=== PATIENT | female | born 1970 | race Caucasian/White ===

== ENCOUNTER 2017-08-04 11:31 | Emergency (ER) | payer OTHER ==
[~2017-08-04] VITALS: Ht 162.6 cm; Wt 79.8 kg
[~2017-08-04 11:31] MED LIST: ASPI-482 PO; IBUP-1007 PO; LORA-627 PO; MULT1CAP15 PO; NAPR500T8 PO; PROAIR HFA8.5 GM IH; SERT100T8 PO
[2017-08-04] MEDS ORDERED: LIDOCAINE/EPI/TETRACAINE TOPICAL GEL 3 ML. TP ONE (11:45)
--- NOTE | 2017-08-04 11:58 | PHYS DOC ---
Past Medical History Past Medical History: Depression, Other Additional Past Medical Histor: Cerebral palsy Alcohol Use: None Drug Use: None Adult General Chief Complaint Chief Complaint: LACERATION/AVULSION HPI HPI Patient is a 47 year old female presents to the emergency Department with her mother who states that she went walk up the back door and tripped. She fell hitting her head she has a laceration noted to her forehead is approximately 3- 4 cm in length. Patient denies any loss of consciousness. She is unsure when her last tetanus immunization occurred. She denies any neck or back pain and discomfort. Review of Systems Review of Systems Constitutional: Denies fever or chills [] Eyes: Denies change in visual acuity, redness, or eye pain [] HENT: Denies nasal congestion or sore throat [] Respiratory: Denies cough or shortness of breath [] Cardiovascular: No additional information not addressed in HPI [] GI: Denies abdominal pain, nausea, vomiting, bloody stools or diarrhea [] : Denies dysuria or hematuria [] Musculoskeletal: Denies back pain or joint pain [] Integument: Denies rash or skin lesions presents to the emergency department for lacerations to right forehead. Neurologic: Denies headache, focal weakness or sensory changes [] Endocrine: Denies polyuria or polydipsia [] Current Medications Current Medications Current Medications Medications (Trade) Dose Ordered Sig/Mica Start Time Stop Time Status Last Admin Dose Admin Diphtheria/ Tetanus/Acell Pertussis (Boostrix) 0.5 ml ONCE ONCE 08/04/17 12:00 08/04/17 12:01 DC 08/04/17 13:19 0.5 ML Lidocaine/ Epinephrine (Let Topical) 3 ml 1X ONCE 08/04/17 11:45 08/04/17 11:46 DC 08/04/17 11:59 3 ML Allergies Allergies Allergies Coded Allergies Type Severity Reaction Last Updated Verified No Known Drug Allergies 10/08/14 No Physical Exam Physical Exam Constitutional: Well developed, well nourished, no acute distress, non-toxic appearance. [] HENT: Normocephalic, atraumatic, bilateral external ears normal, oropharynx moist, no oral exudates, nose normal. [] Eyes: PERRLA, EOMI, conjunctiva normal, no discharge. [] Neck: Normal range of motion, no tenderness, supple, no stridor. [] Cardiovascular:Heart rate regular rhythm, no murmur [] Lungs & Thorax: Bilateral breath sounds clear to auscultation [] Skin: Warm, dry, no erythema, no rash. Patient with a 3 cm laceration noted to the right forehead. Back: No tenderness Extremities: No tenderness, no cyanosis, no clubbing, ROM intact, no edema. [] Neurologic: Alert and oriented X 3, normal motor function, normal sensory function, no focal deficits noted. [] Psychologic: Affect normal, judgement normal, mood normal. [] Current Patient Data Vital Signs Vital Signs Date Time Temp Pulse Resp B/P (MAP) Pulse Ox O2 Delivery O2 Flow Rate FiO2 08/04/17 12:01 98.9 101 18 96 Room Air 98.9 EKG EKG [] Radiology/Procedures Radiology/Procedures [][facility] [address] [place] [address] IMAGING REPORT Signed PATIENT: BEAN HA ACCOUNT: [id number] : 1970 LOCATION: ER AGE: 47 SEX: F EXAM STATUS: PRE ER ORD. PHYSICIAN: TOMMY ABARCA APRN REASON: fell face first onto the ground PROCEDURE: CT HEAD AND CERVICAL SPINE WO Indication fall. Injury to the head and cervical spine. Pain. The head and cervical spine were evaluated. Images of the cervical spine were reformatted in the coronal and sagittal planes. No prior imaging of the head is available. The history of prior stroke has been provided. CT head: Findings. Some soft tissue swelling over the forehead is noted. No acute calvarial finding is seen. There is partial opacification of the maxillary sinuses. Clinical correlation as to the possibility of sinusitis advised. There are some atrophic changes seen associated with the left cerebral hemisphere relative to the right. These findings would be compatible with the history provided, previous stroke. There is no subdural or epidural hematoma. No mass or midline shift is seen. There is no evidence of hemorrhage. No acute intracranial finding is not apparent. CT cervical spine: Findings The lung apices are clear. No significant soft tissue finding is seen in the neck. There are degenerative changes in the cervical spine. This is most pronounced at C4-5 and C5-6. There is disc space narrowing and osteophyte formation at both of these levels. No acute bony finding is seen in the cervical spine. IMPRESSION: Chronic changes in the head. No acute finding seen. Spondylitic changes in the cervical spine. No acute finding seen PQRS Compliance Statement: One or more of the following individualized dose reduction techniques were utilized for this examination: 1. Automated exposure control 2. Adjustment of the mA and/or kV according to patient size 3. Use of iterative reconstruction technique DICTATED and SIGNED BY: JESSY MACHADO MD DATE: 08/04/17 1221 CC: TOMMY ABARCA APRN; GILBERT WILKES MD ~ Course & Med Decision Making Course & Med Decision Making Pertinent Labs and Imaging studies reviewed. (See chart for details) LET was applied to the laceration. Site was cleaned with Betadine. 6-0 nylon was used to suture the area with a sterile technique. Sutures, interrupted were placed. Steri-Strips was placed over the other superficial laceration. Patient was provided with discharge instructions to have the sutures out in 7-10 days. Recommended cleaning the site twice day with soap and water and applying antibiotic ointment. Signs symptoms of infection redness, warmth, tenderness or any yellow/greenish transient become from the site physician occur follow-up to primary care physician immediately. Patient and parent agrees with discharge instructions, treatment regimens and follow-up recommendations. Signs symptoms to return back to emergency department provided. All questions and concerns been answered at bedside. Dragon Disclaimer Dragon Disclaimer This electronic medical record was generated, in whole or in part, using a voice recognition dictation system. Departure Departure Impression: Primary Impression: Laceration Additional Impression: Head injury Disposition: 01 HOME, SELF-CARE Condition: STABLE Referrals: GILBERT WILKES MD (PCP) Patient Instructions: Facial Laceration, [id number], Head Injury, Adult, Easy -to-Read Additional Instructions: Your CT scan was negative for head injury or neck. You have sutures placed in your forehead. Keep the sutures clean and dry. Clean the site twice daily with soap and water and apply antibiotic ointment to the area. Watch for signs and symptoms of infection: Redness, warmth, tenderness or any yellow/greenish drainage of a come from the site. Physician occur follow-up to primary care physician immediately. Ice packs on 20 minutes off 20 minutes several times a day. You may wash her hair today that in the next 7 day to 10 days keep the areas clean and dry as possible. Follow-up with her primary care physician in 7-10 days for suture removal. Return back to emergency prior signs symptoms of become worse. Problem Qualifiers Additional Impression: Head injury Encounter type: initial encounter Qualified Codes: S09.90XA - Unspecified injury of head, initial encounter TOMMY ABARCA TMD TEACHER Aug 04, 2017 11:58
[2017-08-04] MEDS ORDERED: DIPHTH,PERTUSS(ACELL),TET TOX 0.5 ML DISP.SYRIN. VAX IM ONE (12:00)
[2017-08-04 12:01] VITALS: BP 166/91
--- NOTE | 2017-08-04 12:33 | RAD ---
Indication fall. Injury to the head and cervical spine. Pain. The head and cervical spine were evaluated. Images of the cervical spine were reformatted in the coronal and sagittal planes. No prior imaging of the head is available. The history of prior stroke has been provided. CT head: Findings. Some soft tissue swelling over the forehead is noted. No acute calvarial finding is seen. There is partial opacification of the maxillary sinuses. Clinical correlation as to the possibility of sinusitis advised. There are some atrophic changes seen associated with the left cerebral hemisphere relative to the right. These findings would be compatible with the history provided, previous stroke. There is no subdural or epidural hematoma. No mass or midline shift is seen. There is no evidence of hemorrhage. No acute intracranial finding is not apparent. CT cervical spine: Findings The lung apices are clear. No significant soft tissue finding is seen in the neck. There are degenerative changes in the cervical spine. This is most pronounced at C4-5 and C5-6. There is disc space narrowing and osteophyte formation at both of these levels. No acute bony finding is seen in the cervical spine. IMPRESSION: Chronic changes in the head. No acute finding seen. Spondylitic changes in the cervical spine. No acute finding seen PQRS Compliance Statement: One or more of the following individualized dose reduction techniques were utilized for this examination: 1. Automated exposure control 2. Adjustment of the mA and/or kV according to patient size 3. Use of iterative reconstruction technique
== END 2017-08-04 13:21 | disposition home or self-care (01) ==
LOC: ER 11:31
DX: S01.81XA Laceration without foreign body of other part of head, initial encounter (principal); W01.0XXA Fall on same level from slipping, tripping and stumbling without subsequent striking against object, initial encounter; Y93.89 Activity, other specified; Y99.8 Other external cause status; Y92.89 Other specified places as the place of occurrence of the external cause
CPT/HCPCS: 12013; 70450; 72125; 90471; 90715; 99284-25

== ENCOUNTER → 2017-09-15 | Outpatient (CLI) | payer MEDICARE, OTHER ==
--- NOTE | 2017-09-15 11:59 | RAD ---
DATE: 09/15/2017 EXAM: DIGITAL SCREEN BILAT W/CAD HISTORY: Routine screening COMPARISON: 09/14/2016 This study was interpreted with the benefit of Computerized Aided Detection (CAD). The breast parenchyma shows scattered fibroglandular densities. Breast parenchyma level B. FINDINGS: No new or enlarging breast densities are seen. A marker from a previous breast biopsy is evident medially in the left breast. Benign type calcifications are present. No suspicious microcalcifications have developed. IMPRESSION: Stable mammograms without evidence of malignancy. BI-RADS CATEGORY: 2 BENIGN FINDING(S) RECOMMENDED FOLLOW-UP: 12M 12 MONTH FOLLOW-UP PQRS compliance statement: Patient information was entered into a reminder system with a target due date for the next mammogram. Mammography is a sensitive method for finding small breast cancers, but it does not detect them all and is not a substitute for careful clinical examination. A negative mammogram does not negate a clinically suspicious finding and should not result in delay in biopsying a clinically suspicious abnormality. "Our facility is accredited by the [employer] Mammography Program."
== END | disposition home or self-care (01) ==
LOC: MAMMO 10:02
PROVIDERS: ATTEND Family Medicine
DX: Z12.31 Encounter for screening mammogram for malignant neoplasm of breast (principal)
CPT/HCPCS: G0202; 77067

== ENCOUNTER → 2017-11-07 | Outpatient (CLI) | payer OTHER ==
--- NOTE | 2017-11-07 12:11 | KCIC ---
Examination: MRI of the right knee without contrast HISTORY: History of lateral right knee pain COMPARISON: None available Technique: Multiplanar, multisequence MR imaging of the right knee was performed without contrast. FINDINGS: There is mild increased density T2 signal identified in the anterior cruciate ligament probably mild degeneration. The visualized posterior cruciate appears intact. The medial meniscus appears intact. There is mild attenuation of the body of the lateral meniscus. There is subtle blunting of the junction of the body and posterior horn of the lateral meniscus likely a small radial tear or free edge tearing. The extensor mechanism is intact. The medial collateral ligament is intact. Lateral collateral ligamentous complex including the fibular collateral ligament, biceps femoris tendon, popliteus tendon appear intact. There is mild superficial fraying of cartilage identified in the medial, lateral compartment. There is deep fissuring of cartilage identified in the patellofemoral compartments. The medial retinaculum, lateral retinaculum appears intact. Small knee joint effusion. IMPRESSION: 1. Subtle blunting of the junction of the body and posterior horn of the lateral meniscus could be a subtle free edge tear or radial tear. 2. Grade 2 chondromalacia patella. 3. Mild increased signal identified in the anterior cruciate ligament probably due to mild degeneration. Electronically signed by: Florentin Farrell MD (11/07/2017 12:07 PM) [id number]
== END | disposition home or self-care (01) ==
LOC: KCIC MRI 09:18
PROVIDERS: ATTEND Physician Assistant Surgical
DX: M94.261 Chondromalacia, right knee (principal); M25.461 Effusion, right knee
CPT/HCPCS: 73721

== ENCOUNTER → 2018-09-25 | Outpatient (CLI) | payer OTHER ==
--- NOTE | 2018-09-25 11:38 | RAD ---
DATE: 09/25/2018 EXAM: MAMMO CARO SCREENING BILATERAL HISTORY: Routine screening COMPARISON: 09/15/2017 This study was interpreted with the benefit of Computerized Aided Detection (CAD). Breast Density: HETERO The breast parenchyma is heterogenously dense, which could reduce sensitivity of mammography. Breast parenchyma level C. FINDINGS: 2-D and 3-D tomosynthesis imaging was performed in CC and MLO projections. An old breast biopsy marker is again noted medially in the left breast. No new or enlarging breast densities are seen. Scattered benign type calcifications are again noted. A cluster of microcalcifications is now visualized for posteriorly in the right breast just lateral to the midline on the cc view. It was not visible on previous mammograms. These calcifications are not clearly visualized on the current right oblique view, however, there is patient motion artifact on today's oblique view. IMPRESSION: Clustered right breast microcalcifications. Magnification and straight medial lateral views are suggested for further evaluation. BI-RADS CATEGORY: 0 INCOMPLETE: NEEDS ADDITIONAL IMAGING EVALUATION AND/OR PRIOR MAMMOGRAMS FOR COMPARISON. RECOMMENDED FOLLOW-UP: ADD ADDITIONAL IMAGING PQRS compliance statement: Patient information was entered into a reminder system with a target due date for the next mammogram. Mammography is a sensitive method for finding small breast cancers, but it does not detect them all and is not a substitute for careful clinical examination. A negative mammogram does not negate a clinically suspicious finding and should not result in delay in biopsying a clinically suspicious abnormality. "Our facility is accredited by the [employer] Mammography Program."
== END | disposition home or self-care (01) ==
LOC: MAMMO 08:53
PROVIDERS: ATTEND Family Medicine
DX: Z12.31 Encounter for screening mammogram for malignant neoplasm of breast (principal); R92.0 Mammographic microcalcification found on diagnostic imaging of breast
CPT/HCPCS: 77063; 77067

== ENCOUNTER → 2018-10-03 | Outpatient (CLI) | payer OTHER ==
--- NOTE | 2018-10-03 10:11 | RAD ---
DATE: 10/03/2018 EXAM: DIGITAL DIAGNOSTIC RT HISTORY: Abnormal screening mammogram COMPARISON: 09/14/2016, 09/15/2017, and 09/25/2018 screening mammographic exams This study was interpreted with the benefit of Computerized Aided Detection (CAD). Breast Density: SCATTERED The breast parenchyma shows scattered fibroglandular densities. Breast parenchyma level B. FINDINGS: Mediolateral view of the right breast was performed. Spot magnification view of the right outer breast in the CC projection and spot medication imaging of the upper right breast in the mediolateral view was There are scattered calcifications which are smoothly marginated. No conclusive suspicious cluster. Calcifications are less evident in the CC projection. There may be overlapping of these calcifications on the mediolateral projection at the upper breast. IMPRESSION: Probably benign right upper calcifications. No associated distortion or definite mass. Diagnostic mammographic follow-up in 6 months is recommended to assess stability. Ultrasound may be needed at that time. BI-RADS CATEGORY: 3 PROBABLY BENIGN FINDING(S)-SHORT INTERVAL FOLLOW-UP SUGGESTED RECOMMENDED FOLLOW-UP: 6M 6 MONTH FOLLOW-UP PQRS compliance statement: Patient information was entered into a reminder system with a target due date in 6 months for the next mammogram. Mammography is a sensitive method for finding small breast cancers, but it does not detect them all and is not a substitute for careful clinical examination. A negative mammogram does not negate a clinically suspicious finding and should not result in delay in biopsying a clinically suspicious abnormality. "Our facility is accredited by the [employer] Mammography Program."
== END | disposition home or self-care (01) ==
LOC: MAMMO 09:13
PROVIDERS: ATTEND Family Medicine
DX: R92.8 Other abnormal and inconclusive findings on diagnostic imaging of breast (principal)
CPT/HCPCS: 77065

== ENCOUNTER 2019-02-03 13:57 | Emergency (ER) | payer OTHER ==
[~2019-02-03] VITALS: Ht 165.1 cm; Wt 69.4 kg
[~2019-02-03 13:57] MED LIST changes: +ALBU2.5V8 IH; -PROAIR HFA8.5 GM IH
[2019-02-03] MEDS ORDERED: IV NORMAL SALINE 1000ML BAG 1,000 ML IV ONE ×2 (14:45)
--- NOTE | 2019-02-03 14:51 | PHYS DOC ---
Past Medical History Past Medical History: Depression, Other Additional Past Medical Histor: Cerebral palsy Past Surgical History: No Surgical History Alcohol Use: None Drug Use: None Adult General Chief Complaint Chief Complaint: DIARRHEA HPI HPI Patient is a 48-year-old female, who has a history of cerebral palsy, who presents to the emergency department along with her mother. The patient states that for the past 4 days she has had multiple episodes of diarrhea, seemingly precipitated by eating anything at all. She has not had any vomiting or fevers per se, but feels generally weak. She has not had any bloody stools. She is noted to be tachycardic upon arrival. She denies any chest pain or shortness of breath. She does admit to some generalized abdominal pain. There are no alleviating or exacerbating factors to her symptoms. Patient denies any recent travel or antibiotic use. Review of Systems Review of Systems Constitutional: Denies fever or chills [] Eyes: Denies change in visual acuity, redness, or eye pain [] HENT: Denies nasal congestion or sore throat [] Respiratory: Denies cough or shortness of breath [] Cardiovascular:The patient denies any shortness of breath, chest pain, palpitations, or orthopnea [] GI: No additional information not addressed in HPI [] : Denies dysuria or hematuria [] Musculoskeletal: Denies back pain or joint pain [] Integument: Denies rash or skin lesions [] Neurologic: Denies headache, focal weakness or sensory changes [] Endocrine: Denies polyuria or polydipsia [] All other systems were reviewed and found to be within normal limits, except as documented in this note. Current Medications Current Medications Current Medications Medications (Trade) Dose Ordered Sig/Mica Start Time Stop Time Status Last Admin Dose Admin Info (CONTRAST GIVEN -- Rx MONITORING) 1 each PRN DAILY PRN 02/03/19 15:45 02/05/19 15:44 Iohexol (Omnipaque 300 Mg/ml) 75 ml 1X ONCE 02/03/19 15:45 02/03/19 15:46 DC 02/03/19 15:59 75 ML Sodium Chloride 1,000 ml @ 1,000 mls/hr 1X ONCE 02/03/19 14:45 02/03/19 15:44 DC 02/03/19 15:26 1,000 MLS/HR Allergies Allergies Allergies Coded Allergies Type Severity Reaction Last Updated Verified No Known Drug Allergies 10/08/14 No Physical Exam Physical Exam PHYSICAL EXAM: CONSTITUTIONAL: Well developed, well nourished HEAD: normocephalic, atraumatic EENT: PERRL, EOMI. Conjunctivae normal color, sclerae non-icteric; moist mucous membranes. NECK: Supple, non-tender; no meningismus. LUNGS: Lungs CTA, breathing even and unlabored. Normal air movement. HEART: Regular rate and rhythm, no murmur CHEST: No deformity; non-tender ABDOMEN: The abdomen is soft, mild diffuse tenderness to palpation to the entire abdomen, without focal tenderness, rebound, or guarding, bowel sounds are present, no masses or bruits. EXTREM: Normal ROM; no deformity, no calf tenderness. Normal pulses palpable in all extremities. There are contractures of the upper extremities bilaterally, there is swelling to the left leg relative to the right which the patient states is chronic for her. SKIN: No rash; no diaphoresis NEURO: Alert; normal speech and cognition; CN's grossly intact; strength grossly intact without focal deficit. BACK: No CVA TTP. Current Patient Data Vital Signs Vital Signs Date Time Temp Pulse Resp B/P (MAP) Pulse Ox O2 Delivery O2 Flow Rate FiO2 02/03/19 14:33 98.4 153 20 141/81 (101) 96 Room Air 98.4 Lab Values Laboratory Tests Test 02/03/19 15:02 White Blood Count 6.9 x10^3/uL (4.0-11.0) Red Blood Count 5.18 x10^6/uL (3.50-5.40) Hemoglobin 15.6 g/dL (12.0-15.5) H Hematocrit 47.1 % (36.0-47.0) H Mean Corpuscular Volume 91 fL (79-100) Mean Corpuscular Hemoglobin 30 pg (25-35) Mean Corpuscular Hemoglobin Concent 33 g/dL (31-37) Red Cell Distribution Width 14.0 % (11.5-14.5) Platelet Count 424 x10^3/uL (140-400) H Neutrophils (%) (Auto) 68 % (31-73) Lymphocytes (%) (Auto) 25 % (24-48) Monocytes (%) (Auto) 7 % (0-9) Eosinophils (%) (Auto) 1 % (0-3) Basophils (%) (Auto) 0 % (0-3) Neutrophils # (Auto) 4.7 x10^3uL (1.8-7.7) Lymphocytes # (Auto) 1.7 x10^3/uL (1.0-4.8) Monocytes # (Auto) 0.5 x10^3/uL (0.0-1.1) Eosinophils # (Auto) 0.0 x10^3/uL (0.0-0.7) Basophils # (Auto) 0.0 x10^3/uL (0.0-0.2) Sodium Level 140 mmol/L (136-145) Potassium Level 3.5 mmol/L (3.5-5.1) Chloride Level 103 mmol/L (98-107) Carbon Dioxide Level 27 mmol/L (21-32) Anion Gap 10 (6-14) Blood Urea Nitrogen 12 mg/dL (7-20) Creatinine 0.8 mg/dL (0.6-1.0) Estimated GFR (Cockcroft-Gault) 76.2 BUN/Creatinine Ratio 15 (6-20) Glucose Level 110 mg/dL (70-99) H Lactic Acid Level 1.0 mmol/L (0.4-2.0) Calcium Level 9.8 mg/dL (8.5-10.1) Total Bilirubin 0.5 mg/dL (0.2-1.0) Aspartate Amino Transferase (AST) 16 U/L (15-37) Alanine Aminotransferase (ALT) 35 U/L (14-59) Alkaline Phosphatase 101 U/L (46-116) Total Protein 8.1 g/dL (6.4-8.2) Albumin 4.2 g/dL (3.4-5.0) Albumin/Globulin Ratio 1.1 (1.0-1.7) Lipase 99 U/L (73-393) Thyroid Stimulating Hormone (TSH) 2.410 uIU/mL (0.358-3.74) Free Thyroxine 0.97 ng/dL (0.76-1.46) Laboratory Tests 02/03/19 15:02 Laboratory Tests 02/03/19 15:02 EKG EKG [Sinus tachycardia at a rate of 143 beats for minute, right axis deviation, normal intervals. There are no acute ischemic ST/T changes.] Radiology/Procedures Radiology/Procedures [PROCEDURE: CT ABD PELV W/ IV CONTRST ONLY Examination: CT of the abdomen pelvis with IV contrast HISTORY: History of abdominal pain, diarrhea COMPARISON: None available TECHNIQUE: Axial CT images of the abdomen pelvis were performed with IV contrast. Coronal and sagittal reformats are performed Exposure: One or more of the following individualized dose reduction techniques were utilized for this examination: 1. Automated exposure control 2. Adjustment of the mA and/or kV according to patient size 3. Use of iterative reconstruction technique FINDINGS: Mild bibasilar lung airspace opacities likely atelectasis or infiltrates. No evidence of free air identified in the abdomen. The visualized liver, spleen, adrenals grossly appears unremarkable. The caliber is mildly distended. The stomach is mildly distended. The visualized pancreas grossly appears unremarkable. The small bowel is nondilated. Feces and gas noted in the colon. Intrauterine contraceptive device is identified. The bilateral kidneys enhance symmetrically. There is a cystic structure identified in the left kidney measuring 1 cm probably a cyst. No evidence of lytic bony destructive lesion. IMPRESSION: 1. No acute intra-abdominal findings ] Course & Med Decision Making Course & Med Decision Making Pertinent Labs and Imaging studies reviewed. (See chart for details) [5:10 PM: The patient's condition remained stable, her heart rate is about 1:30 , but she is feeling much better. She states she is a was tachycardic and does not want stay in the hospital. I'm concerned about the degree of her tachycardia and recommended she stay in the hospital for further observation of the whole workup to this point is benign. The patient expressed understanding of the concerns, as well as the possibility that there is a serious etiology or cause of her ] tachycardia and she would still like to go home. I will page the patient's PCP to ensure that she can be closely followed, and we discussed return precautions in detail. The patient is coherent and both herself and her mother would like to go home. Dragon Disclaimer Dragon Disclaimer This electronic medical record was generated, in whole or in part, using a voice recognition dictation system. Departure Departure Impression: Primary Impression: Diarrhea Additional Impression: Tachycardia Disposition: 07 AGAINST MEDICAL ADVICE Condition: STABLE Referrals: GILBERT WILKES MD (PCP) Patient Instructions: Diarrhea, Nonspecific Tachycardia Problem Qualifiers JORGE LUIS MARROQUIN MD Feb 03, 2019 14:51
[2019-02-03 15:23] LABS: BASO % 0 % (0-3); EOS % 1 % (0-3); HEMATOCRIT 47.1 % (36.0-47.0); HEMOGLOBIN 15.6 g/dL (12.0-15.5); LYMPH # 1.7 x10^3/uL (1.0-4.8); LYMPH % 25 % (24-48); MEAN CORPUSCULAR HEMOGLOBIN 30 pg (25-35); MEAN CORPUSCULAR HGB CONC 33 g/dL (31-37); MEAN CORPUSCULAR VOLUME 91 fL (79-100); MONO # 0.5 x10^3/uL (0.0-1.1); MONO % 7 % (0-9); NEUT # 4.7 x10^3uL (1.8-7.7); NEUT % 68 % (31-73); PLATELET COUNT 424 x10^3/uL (140-400); RED BLOOD COUNT 5.18 x10^6/uL (3.50-5.40); WHITE BLOOD COUNT 6.9 x10^3/uL (4.0-11.0)
[2019-02-03 15:38] LABS: CALCIUM 9.8 mg/dL (8.5-10.1); CREATININE 0.8 mg/dL (0.6-1.0); GFR 76.2; POTASSIUM 3.5 mmol/L (3.5-5.1)
[2019-02-03] MEDS ORDERED: CONTRAST GIVEN. MC PRN (15:45)
[2019-02-03] MEDS ORDERED: IOHEXOL 300 MG/ML 100ML VIAL. IV ONE (15:45)
[2019-02-03 15:55] LABS: ALBUMIN 4.2 g/dL (3.4-5.0); ALBUMIN/GLOBULIN RATIO 1.1 (1.0-1.7); TOTAL BILIRUBIN 0.5 mg/dL (0.2-1.0); TOTAL PROTEIN 8.1 g/dL (6.4-8.2)
[2019-02-03 15:58] LABS: FREE T4 0.97 ng/dL (0.76-1.46); THYROID STIM HORMONE (TSH) 2.41 uIU/mL (0.358-3.74)
--- NOTE | 2019-02-03 16:17 | RAD ---
Examination: CT of the abdomen pelvis with IV contrast HISTORY: History of abdominal pain, diarrhea COMPARISON: None available TECHNIQUE: Axial CT images of the abdomen pelvis were performed with IV contrast. Coronal and sagittal reformats are performed Exposure: One or more of the following individualized dose reduction techniques were utilized for this examination: 1. Automated exposure control 2. Adjustment of the mA and/or kV according to patient size 3. Use of iterative reconstruction technique FINDINGS: Mild bibasilar lung airspace opacities likely atelectasis or infiltrates. No evidence of free air identified in the abdomen. The visualized liver, spleen, adrenals grossly appears unremarkable. The caliber is mildly distended. The stomach is mildly distended. The visualized pancreas grossly appears unremarkable. The small bowel is nondilated. Feces and gas noted in the colon. Intrauterine contraceptive device is identified. The bilateral kidneys enhance symmetrically. There is a cystic structure identified in the left kidney measuring 1 cm probably a cyst. No evidence of lytic bony destructive lesion. IMPRESSION: 1. No acute intra-abdominal findings Electronically signed by: Florentin Farrell MD (02/03/2019 4:14 PM) [facility]
[2019-02-03 17:27] VITALS: BP 125/69
--- NOTE | 2019-02-04 07:04 | EKG ---
[facility] [address] [place] [address] Test Date: 2019-02-03 Test Time: 14:44:09 Pat Name: BEAN HA Department: Room: Gender: F Labor Relations Representative: : 1970 Requested By: JORGEL UIS MARROQUIN Order Number: [id number] Reading MD: Geoffrey Novoa MD Measurements Intervals [place] Rate: 143 P: 156 OR: 124 QRS: 152 QRSD: 78 T: 148 QT: 274 QTc: 428 Interpretive Statements SINUS TACHYCARDIA LIMB LEAD MISPLACEMENT Electronically Signed On 02-07-2019 15:51:47 CDT by Geoffrey Novoa MD
== END 2019-02-03 17:49 | disposition left against medical advice (07) ==
LOC: EDBD → ER 13:57
DX: R19.7 Diarrhea, unspecified (principal); R00.0 Tachycardia, unspecified; R10.84 Generalized abdominal pain; R53.1 Weakness
CPT/HCPCS: 36415; 74177; 80053; 83605; 83690; 84439; 84443; 85025; 87040; 93005; 96360; 96361; 99284; J7030; Q9967

== ENCOUNTER 2019-04-09 20:26 | Emergency (ER) | payer OTHER ==
[~2019-04-09] VITALS: Ht 162.6 cm; Wt 72.6 kg
[2019-04-09] MEDS ORDERED: ONDANSETRON PF 4 MG/2 ML VIAL. IV ONE (20:45)
[2019-04-09] MEDS ORDERED: IV NORMAL SALINE 1000ML BAG 1,000 ML IV SCH (20:45)
[2019-04-09] MEDS ORDERED: fentaNYL PF VIAL 100 MCG/2 ML VIAL IV ONE ×2 (20:45→22:45)
[2019-04-09 20:58] LABS: BILIRUBIN,URINE NEGATIVE (NEG); CLARITY,URINE CLEAR; COLOR,URINE YELLOW; NITRITE,URINE NEGATIVE (NEG); PROTEIN,URINE NEGATIVE (NEG-TRACE); UROBILINOGEN,URINE 0.2 mg/dL (0.2 mg/dL)
--- NOTE | 2019-04-09 21:03 | PHYS DOC ---
Past Medical History Past Medical History: Asthma, Depression, High Cholesterol, Other Additional Past Medical Histor: Cerebral palsy (KJ MCKENZIE APRN) Past Surgical History: Other Additional Past Surgical Histo: SHOULDER (KJ MCKENZIE APRN) Alcohol Use: None Drug Use: None (KJ MCKENZIE APRN) Adult General Chief Complaint Chief Complaint: ABDOMINAL PAIN HPI HPI Patient is a 48 year old female who presents to the ER with abdominal pain, nausea, and vomiting that started after dinner around 6:00 PM this evening. She has a history of cerebral palsy. Tried to take Tylenol and threw it up. Has felt like she's had a fever today. Also states she's had a slight headache. Rates her pain 6 out of 10 and cramping. (KJ MCKENZIE APRN) Review of Systems Review of Systems Constitutional: Reports fever or chills [] Eyes: Denies change in visual acuity, redness, or eye pain [] HENT: Denies nasal congestion or sore throat [] Respiratory: Denies cough or shortness of breath [] Cardiovascular: No additional information not addressed in HPI [] GI: Reports abdominal pain, nausea, and vomiting. Denies diarrhea and blood in stools. : Denies dysuria or hematuria [] Musculoskeletal: Denies back pain or joint pain [] Integument: Denies rash or skin lesions [] Neurologic: Reports headache denies focal weakness or sensory changes [] Endocrine: Denies polyuria or polydipsia [] Complete systems were reviewed and found to be within normal limits, except as documented in this note. (KJ MCKENZIE APRN) Current Medications Current Medications Current Medications Medications (Trade) Dose Ordered Sig/Mica Start Time Stop Time Status Last Admin Dose Admin Ceftriaxone Sodium (Rocephin) 1 gm 1X ONCE 04/09/19 21:15 04/09/19 21:16 DC 04/09/19 21:55 1 GM Dicyclomine HCl (Bentyl) 10 mg 1X ONCE 04/09/19 23:15 04/09/19 23:16 DC 04/09/19 23:24 10 MG Fentanyl Citrate (Fentanyl 2ml Vial) 50 mcg 1X ONCE 04/09/19 22:45 04/09/19 22:46 DC 04/09/19 22:50 50 MCG Info (CONTRAST GIVEN -- Rx MONITORING) 1 each PRN DAILY PRN 04/09/19 21:45 04/09/19 23:48 DC Iohexol (Omnipaque 300 Mg/ml) 75 ml 1X ONCE 04/09/19 21:30 04/09/19 21:31 DC 04/09/19 21:42 75 ML Ketorolac Tromethamine (Toradol 15mg Vial) 15 mg 1X ONCE 04/09/19 23:15 04/09/19 23:16 DC 04/09/19 23:24 15 MG Ondansetron HCl (Zofran) 4 mg 1X ONCE 04/09/19 20:45 04/09/19 20:55 DC 04/09/19 20:59 4 MG Prochlorperazine Edisylate (Compazine) 10 mg 1X ONCE 04/09/19 22:45 04/09/19 22:46 DC 04/09/19 22:50 10 MG Sodium Chloride 500 ml @ 500 mls/hr 1X ONCE 04/09/19 21:30 04/09/19 21:48 DC (VALERIE DAVIS MD) Allergies Allergies Allergies Coded Allergies Type Severity Reaction Last Updated Verified No Known Drug Allergies 10/08/14 No (VALERIE DAVIS MD) Physical Exam Physical Exam Constitutional: Well developed, well nourished, no acute distress, non-toxic appearance. [] HENT: Normocephalic, atraumatic, bilateral external ears normal, oropharynx moist, no oral exudates, nose normal. [] Eyes: PERRLA, EOMI, conjunctiva normal, no discharge. [] Neck: Normal range of motion, no tenderness, supple, no stridor. [] Cardiovascular:Heart rate regular rhythm, no murmur [] Lungs & Thorax: Bilateral breath sounds clear to auscultation [] Abdomen: Bowel sounds normal, soft, no tenderness, no masses, no pulsatile masses. [] Skin: Warm, dry, no erythema, no rash. [] Back: No tenderness, no CVA tenderness. [] Extremities: No tenderness, no cyanosis, no clubbing, ROM intact, no edema. [] Neurologic: Alert and oriented X 3, normal motor function, normal sensory function, no focal deficits noted. [] Psychologic: Affect normal, judgement normal, mood normal. [] (KJ MCKENZIE APRN) Current Patient Data Vital Signs Vital Signs Date Time Temp Pulse Resp B/P (MAP) Pulse Ox O2 Delivery O2 Flow Rate FiO2 04/09/19 23:10 114 131/70 (90) 96 Room Air 04/09/19 21:00 20 04/09/19 20:35 98.8 98.8 (VALERIE DAVIS MD) Lab Values Laboratory Tests Test 04/09/19 20:30 04/09/19 20:55 Urine Collection Type Unknown Urine Color Yellow Urine Clarity Clear Urine pH 7.0 Urine Specific [place] 1.020 Urine Protein Negative mg/dL (NEG-TRACE) Urine Glucose (UA) Negative mg/dL (NEG) Urine Ketones (Stick) >=80 mg/dL (NEG) Urine Blood Negative (NEG) Urine Nitrite Negative (NEG) Urine Bilirubin Negative (NEG) Urine Urobilinogen Dipstick 0.2 mg/dL (0.2 mg/dL) Urine Leukocyte Esterase Small (NEG) Urine RBC Occ /HPF (0-2) Urine WBC 5-10 /HPF (0-4) Urine Squamous Epithelial Cells Many /LPF Urine Bacteria Mod /HPF (0-FEW) Urine Mucus Marked /LPF White Blood Count 9.5 x10^3/uL (4.0-11.0) Red Blood Count 5.05 x10^6/uL (3.50-5.40) Hemoglobin 15.5 g/dL (12.0-15.5) Hematocrit 45.8 % (36.0-47.0) Mean Corpuscular Volume 91 fL (79-100) Mean Corpuscular Hemoglobin 31 pg (25-35) Mean Corpuscular Hemoglobin Concent 34 g/dL (31-37) Red Cell Distribution Width 14.2 % (11.5-14.5) Platelet Count 470 x10^3/uL (140-400) H Neutrophils (%) (Auto) 81 % (31-73) H Lymphocytes (%) (Auto) 14 % (24-48) L Monocytes (%) (Auto) 4 % (0-9) Eosinophils (%) (Auto) 1 % (0-3) Basophils (%) (Auto) 0 % (0-3) Neutrophils # (Auto) 7.7 x10^3uL (1.8-7.7) Lymphocytes # (Auto) 1.3 x10^3/uL (1.0-4.8) Monocytes # (Auto) 0.4 x10^3/uL (0.0-1.1) Eosinophils # (Auto) 0.1 x10^3/uL (0.0-0.7) Basophils # (Auto) 0.0 x10^3/uL (0.0-0.2) Prothrombin Time 13.3 SEC (11.7-14.0) Prothrombin Time INR 1.0 (0.8-1.1) PTT 33 SEC (24-38) Sodium Level 139 mmol/L (136-145) Potassium Level 3.6 mmol/L (3.5-5.1) Chloride Level 101 mmol/L (98-107) Carbon Dioxide Level 25 mmol/L (21-32) Anion Gap 13 (6-14) Blood Urea Nitrogen 10 mg/dL (7-20) Creatinine 0.6 mg/dL (0.6-1.0) Estimated GFR (Cockcroft-Gault) 106.3 BUN/Creatinine Ratio 17 (6-20) Glucose Level 115 mg/dL (70-99) H Lactic Acid Level 1.5 mmol/L (0.4-2.0) Calcium Level 9.8 mg/dL (8.5-10.1) Total Bilirubin 0.6 mg/dL (0.2-1.0) Aspartate Amino Transferase (AST) 19 U/L (15-37) Alanine Aminotransferase (ALT) 32 U/L (14-59) Alkaline Phosphatase 103 U/L (46-116) Troponin I Quantitative < 0.017 ng/mL (0.000-0.055) Total Protein 7.8 g/dL (6.4-8.2) Albumin 4.1 g/dL (3.4-5.0) Albumin/Globulin Ratio 1.1 (1.0-1.7) Laboratory Tests 04/09/19 20:55 Laboratory Tests 04/09/19 20:55 (VALERIE DAVIS MD) Lab Values Laboratory Tests Test 04/09/19 20:30 04/09/19 20:55 Urine Collection Type Unknown Urine Color Yellow Urine Clarity Clear Urine pH 7.0 Urine Specific [place] 1.020 Urine Protein Negative mg/dL (NEG-TRACE) Urine Glucose (UA) Negative mg/dL (NEG) Urine Ketones (Stick) >=80 mg/dL (NEG) Urine Blood Negative (NEG) Urine Nitrite Negative (NEG) Urine Bilirubin Negative (NEG) Urine Urobilinogen Dipstick 0.2 mg/dL (0.2 mg/dL) Urine Leukocyte Esterase Small (NEG) Urine RBC Occ /HPF (0-2) Urine WBC 5-10 /HPF (0-4) Urine Squamous Epithelial Cells Many /LPF Urine Bacteria Mod /HPF (0-FEW) Urine Mucus Marked /LPF White Blood Count 9.5 x10^3/uL (4.0-11.0) Red Blood Count 5.05 x10^6/uL (3.50-5.40) Hemoglobin 15.5 g/dL (12.0-15.5) Hematocrit 45.8 % (36.0-47.0) Mean Corpuscular Volume 91 fL (79-100) Mean Corpuscular Hemoglobin 31 pg (25-35) Mean Corpuscular Hemoglobin Concent 34 g/dL (31-37) Red Cell Distribution Width 14.2 % (11.5-14.5) Platelet Count 470 x10^3/uL (140-400) H Neutrophils (%) (Auto) 81 % (31-73) H Lymphocytes (%) (Auto) 14 % (24-48) L Monocytes (%) (Auto) 4 % (0-9) Eosinophils (%) (Auto) 1 % (0-3) Basophils (%) (Auto) 0 % (0-3) Neutrophils # (Auto) 7.7 x10^3uL (1.8-7.7) Lymphocytes # (Auto) 1.3 x10^3/uL (1.0-4.8) Monocytes # (Auto) 0.4 x10^3/uL (0.0-1.1) Eosinophils # (Auto) 0.1 x10^3/uL (0.0-0.7) Basophils # (Auto) 0.0 x10^3/uL (0.0-0.2) Prothrombin Time 13.3 SEC (11.7-14.0) Prothrombin Time INR 1.0 (0.8-1.1) PTT 33 SEC (24-38) Sodium Level 139 mmol/L (136-145) Potassium Level 3.6 mmol/L (3.5-5.1) Chloride Level 101 mmol/L (98-107) Carbon Dioxide Level 25 mmol/L (21-32) Anion Gap 13 (6-14) Blood Urea Nitrogen 10 mg/dL (7-20) Creatinine 0.6 mg/dL (0.6-1.0) Estimated GFR (Cockcroft-Gault) 106.3 BUN/Creatinine Ratio 17 (6-20) Glucose Level 115 mg/dL (70-99) H Lactic Acid Level 1.5 mmol/L (0.4-2.0) Calcium Level 9.8 mg/dL (8.5-10.1) Total Bilirubin 0.6 mg/dL (0.2-1.0) Aspartate Amino Transferase (AST) 19 U/L (15-37) Alanine Aminotransferase (ALT) 32 U/L (14-59) Alkaline Phosphatase 103 U/L (46-116) Troponin I Quantitative < 0.017 ng/mL (0.000-0.055) Total Protein 7.8 g/dL (6.4-8.2) Albumin 4.1 g/dL (3.4-5.0) Albumin/Globulin Ratio 1.1 (1.0-1.7) Laboratory Tests 04/09/19 20:55 Laboratory Tests 04/09/19 20:55 (KJ MCKENZIE APRN) EKG EKG EKG interpreted by Dr. Delaney Pemberton with rate of 122. No STEMI. (KJ MCKENZIE APRN) Radiology/Procedures Radiology/Procedures []PATIENT: BEAN HA LACCOUNT: [id number]#: [id number] : 1970 LOCATION: ER AGE: 48 SEX: F EXAM STATUS: REG ER ORD. PHYSICIAN: KJ MCKENZIE APRN REASON: cough PROCEDURE: PORTABLE CHEST 1V Single view chest dated 04/09/2019. Comparison made to 03/03/2010 CLINICAL INDICATION: Cough. FINDINGS: Single upright portable exam performed. Heart and mediastinal contours are stable. There is some patchy increased density at the perihilar regions and left lung base, similar to prior exam. No consolidation or pleural effusion. No pneumothorax. IMPRESSION: Peribronchial thickening with prominent perihilar linear markings, similar to the 2009 study. This could be related to chronic bronchial inflammatory process. Recurrent acute bronchitis not excluded. Electronically signed by: Kj Barone MD (04/09/2019 9:29 PM) [facility] PATIENT: BEAN HA ACCOUNT: [id number] : 1970 LOCATION: ER AGE: 48 SEX: F EXAM STATUS: REG ER ORD. PHYSICIAN: KJ MCKENZIE APRN REASON: lower abd pain/cramping, n/v PROCEDURE: CT ABD PELV W/ IV CONTRST ONLY CT Abdomen and Pelvis with contrast 04/09/2019 Clinical Indication: Lower abdominal pain and cramping, nausea and vomiting Comparison: CT abdomen and pelvis 02/03/2018 Technique: Multiple CT images of the abdomen and pelvis were obtained with contrast following intravenous administration of Omnipaque 300 *One or more of the following individualized dose reduction techniques were utilized for this examination: 1. Automated exposure control. 2. Adjustment of the mA and/or kV according to patient size. 3. Use of iterative reconstruction technique. Findings: Examination is somewhat limited due to patient motion. Visualized lung bases are unremarkable. Heart size is normal. Liver, spleen, gallbladder, adrenal glands and pancreas are unremarkable. Right kidney is unremarkable. There is a stable cyst in the superior pole the left kidney. Abdominal aorta normal in caliber. No bowel obstruction. No abdominal free fluid. The appendix is normal in appearance. No pneumoperitoneum. Uterus is retroflexed. There is an intrauterine device noted. A minimally distended and unopacified urinary bladder is unremarkable. No iliac or inguinal lymphadenopathy. Moderate right hip osteoarthritis with superolateral joint space narrowing, flattening of the humeral head and subchondral cystic change of the acetabulum and femoral head. IMPRESSION: 1. No CT evidence of acute abdominal or pelvic process. 2. Moderate right hip osteoarthritis. Electronically signed by: Sukhjinder Omalley MD (04/09/2019 10:07 PM) [facility] (KJ MCKENZIE APRN) Course & Med Decision Making Course & Med Decision Making Pertinent Labs and Imaging studies reviewed. (See chart for details) Patient is having n/v and abdominal pain. Has a heart rate of 138 while I was in the room. Will do labs, chest xray, urine, CT scan, and supportive medication. Patient is agreeable. Labs appear to show a mild UTI. Will order Rocephin and 2 liters of fluids. The rest of the labs are unremarkable. Lactic is 1.5. White count is 9,000. Patient does not appear to be septic. Imaging is normal with no acute abnormalities. ER workup seems to be pretty unremarkable. Went to check on patient and she is still having crampy pain. Her heart rate has improved with fluids to 108 which is significant improvement from arrival. She still has 500 ml left in bag. Past visits show a baseline of tachycardia. Will PO challenge and if she passes PO challenge send patient home. (KJ MCKENZIE APRN) Course & Med Decision Making I received signout from Jasmeet, he has been reevaluated the patient. Patient did receive some fentanyl and Toradol for continued periumbilical cramping pain however was taking by mouth her rate was downtrending noted mild tachycardia on previous ER visits as well. No obvious source of surgical etiology home as noted above. Discussed with mother who is in agreement (VALERIE DAVIS MD) Dragon Disclaimer Dragon Disclaimer This electronic medical record was generated, in whole or in part, using a voice recognition dictation system. (KJ MCKENZIE APRN) Departure Departure Impression: Primary Impression: Nausea & vomiting Disposition: 01 HOME, SELF-CARE Condition: STABLE Referrals: GILBERT WILKES MD (PCP) Additional Instructions: Please follow up with your primary care doctor as needed. Take zofran for nausea. Can take Tylenol for fever and pain. Take all of antibiotic. Come back to ER if symptoms worsen. Scripts Cephalexin (KEFLEX) 500 Mg Capsule 1 CAP PO BID for 7 Days, #14 CAP Prov: KJ MCKENZIE APRN 04/09/19 Ondansetron (ONDANSETRON ODT) 4 Mg Tab.rapdis 1 TAB PO PRN Q6-8HRS PRN for NAUSEA, #16 TAB Prov: KJ MCKENZIE APRN 04/09/19 Date and Time of Assessment Date: April 09, 2019 Time: 21:00 (KJ MCKENZIE APRN) Vital Signs Vital Signs: Vital Signs Date Time Temp Pulse Resp B/P (MAP) Pulse Ox O2 Delivery O2 Flow Rate FiO2 04/09/19 23:10 114 131/70 (90) 96 Room Air 04/09/19 21:00 20 04/09/19 20:35 98.8 98.8 (VALERIE DAVIS MD) Temperature Source: Rectal (KJ MCKENZIE APRN) Respirations Respiratory Pattern: Normal (KJ MCKENZIE APRN) Cardiovascular Pulse Rhythm: Regular (KJ MCKENZIE APRN) Lung Sounds Breath Sounds: Clear (KJ MCKENZIE APRN) Capillary Refil Capillary Refill: Lt Hand < 3 seconds (KJ MCKENZIE APRN) Peripheral Pulse Pulse Location: Monitor Pulse Strength: Normal (2+) Pulse Assessment Method: Monitor (KJ MCKENZIE APRN) Integumentary Skin: Warm Skin Moisture: Dry Skin Turgor: Decreased Skin Color: warm Fingernail Color: WNL (KJ MCKENZIE APRN) Problem Qualifiers Primary Impression: Nausea & vomiting Vomiting type: unspecified Vomiting Intractability: unspecified Qualified Codes: R11.2 - Nausea with vomiting, unspecified KJ MCKENZIE APRN April 09, 2019 21:03 VALERIE DAVIS MD April 10, 2019 05:30
[2019-04-09 21:04] LABS: SQUAMOUS EPITHELIAL CELL,UR MANY /LPF
[2019-04-09 21:05] LABS: BACTERIA,URINE MOD /HPF (0-FEW); RBC,URINE OCC /HPF (0-2)
[2019-04-09 21:10] LABS: BASO % 0 % (0-3); EOS # 0.1 x10^3/uL (0.0-0.7); EOS % 1 % (0-3); HEMATOCRIT 45.8 % (36.0-47.0); HEMOGLOBIN 15.5 g/dL (12.0-15.5); LYMPH # 1.3 x10^3/uL (1.0-4.8); LYMPH % 14 % (24-48); MEAN CORPUSCULAR HEMOGLOBIN 31 pg (25-35); MEAN CORPUSCULAR HGB CONC 34 g/dL (31-37); MEAN CORPUSCULAR VOLUME 91 fL (79-100); MONO # 0.4 x10^3/uL (0.0-1.1); MONO % 4 % (0-9); NEUT # 7.7 x10^3uL (1.8-7.7); NEUT % 81 % (31-73); PLATELET COUNT 470 x10^3/uL (140-400); RED BLOOD COUNT 5.05 x10^6/uL (3.50-5.40); RED CELL DISTRIBUTION WIDTH 14.2 % (11.5-14.5); WHITE BLOOD COUNT 9.5 x10^3/uL (4.0-11.0)
[2019-04-09] MEDS ORDERED: cefTRIAXone IV Push 1 GM VIAL. IVP ONE (21:15)
[2019-04-09 21:18] LABS: CALCIUM 9.8 mg/dL (8.5-10.1); CREATININE 0.6 mg/dL (0.6-1.0); GFR 106.3; POTASSIUM 3.6 mmol/L (3.5-5.1)
[2019-04-09 21:20] LABS: PROTHROMBIN TIME PATIENT 13.3 SEC (11.7-14.0)
[2019-04-09 21:24] LABS: ALBUMIN 4.1 g/dL (3.4-5.0); ALBUMIN/GLOBULIN RATIO 1.1 (1.0-1.7); TOTAL BILIRUBIN 0.6 mg/dL (0.2-1.0); TOTAL PROTEIN 7.8 g/dL (6.4-8.2)
[2019-04-09] MEDS ORDERED: IV NORMAL SALINE 1000ML BAG 1,000 ML IV ONE (21:30)
[2019-04-09] MEDS ORDERED: IV NORMAL SALINE 500ML BAG 500 ML IV ONE (21:30)
[2019-04-09] MEDS ORDERED: IOHEXOL 300 MG/ML 100ML VIAL. IV ONE (21:30)
--- NOTE | 2019-04-09 21:32 | RAD ---
Single view chest dated 04/09/2019. Comparison made to 03/03/2010 CLINICAL INDICATION: Cough. FINDINGS: Single upright portable exam performed. Heart and mediastinal contours are stable. There is some patchy increased density at the perihilar regions and left lung base, similar to prior exam. No consolidation or pleural effusion. No pneumothorax. IMPRESSION: Peribronchial thickening with prominent perihilar linear markings, similar to the 2010 study. This could be related to chronic bronchial inflammatory process. Recurrent acute bronchitis not excluded. Electronically signed by: Kj Barone MD (04/09/2019 9:29 PM) [facility]
[2019-04-09] MEDS ORDERED: CONTRAST GIVEN. MC PRN (21:45)
--- NOTE | 2019-04-09 22:09 | RAD ---
CT Abdomen and Pelvis with contrast 04/09/2019 Clinical Indication: Lower abdominal pain and cramping, nausea and vomiting Comparison: CT abdomen and pelvis 02/03/2018 Technique: Multiple CT images of the abdomen and pelvis were obtained with contrast following intravenous administration of Omnipaque 300 *One or more of the following individualized dose reduction techniques were utilized for this examination: 1. Automated exposure control. 2. Adjustment of the mA and/or kV according to patient size. 3. Use of iterative reconstruction technique. Findings: Examination is somewhat limited due to patient motion. Visualized lung bases are unremarkable. Heart size is normal. Liver, spleen, gallbladder, adrenal glands and pancreas are unremarkable. Right kidney is unremarkable. There is a stable cyst in the superior pole the left kidney. Abdominal aorta normal in caliber. No bowel obstruction. No abdominal free fluid. The appendix is normal in appearance. No pneumoperitoneum. Uterus is retroflexed. There is an intrauterine device noted. A minimally distended and unopacified urinary bladder is unremarkable. No iliac or inguinal lymphadenopathy. Moderate right hip osteoarthritis with superolateral joint space narrowing, flattening of the humeral head and subchondral cystic change of the acetabulum and femoral head. IMPRESSION: 1. No CT evidence of acute abdominal or pelvic process. 2. Moderate right hip osteoarthritis. Electronically signed by: Sukhjinder Omalley MD (04/09/2019 10:07 PM) [facility]
[2019-04-09] MEDS ORDERED: CEPH-264 PO (22:35)
[2019-04-09] MEDS ORDERED: ONDA4TAB12 PO (22:35)
[2019-04-09] MEDS ORDERED: PROCHLORPERAZINE 10 MG/2 ML VIAL. IV ONE (22:45)
[2019-04-09 23:10] VITALS: BP 131/70
[2019-04-09] MEDS ORDERED: DICYCLOMINE HCL 10 MG CAPSULE PO ONE (23:15)
[2019-04-09] MEDS ORDERED: KETOROLAC 15 MG/ML VIAL. IV ONE (23:15)
--- NOTE | 2019-04-10 06:11 | EKG ---
[facility] [address] [place] [address] Test Date: 2019-04-09 Test Time: 20:50:54 Pat Name: BEAN HA Department: Room: Gender: F Auto Detailer: GEOVANNA : 1970 Requested By: ZULEMA MCKENZIE Order Number: [id number] Reading MD: Measurements Intervals [place] Rate: 122 P: 10 [place]: 122 QRS: 24 QRSD: 84 T: 37 QT: 308 QTc: 440 Interpretive Statements SINUS TACHYCARDIA NO SPECIFIC ECG ABNORMALITIES RI6.01 No previous ECG available for comparison
== END 2019-04-09 23:45 | disposition home or self-care (01) ==
LOC: ER 20:26
DX: R11.2 Nausea with vomiting, unspecified (principal); R51 Headache; R00.0 Tachycardia, unspecified; J45.909 Unspecified asthma, uncomplicated; F32.9 Major depressive disorder, single episode, unspecified; E78.00 Pure hypercholesterolemia, unspecified
CPT/HCPCS: 36415; 71045; 74177; 80053; 81001; 83605; 84484; 85025; 85610; 85730; 87040; 93005; 96361; 96374; 96375; 96376; 99285; J0696; J0780; J1885; J2405; J3010; J7030; Q9967

== ENCOUNTER → 2019-04-17 | Outpatient (CLI) | payer OTHER ==
[2019-04-09 23:10] VITALS: BP 131/70
[~2019-04-17] MED LIST changes: +CEPH-264 PO; +ONDA4TAB12 PO
--- NOTE | 2019-04-17 11:04 | RAD ---
DATE: 04/17/2019 EXAM: DIGITAL DIAGNOSTIC RT HISTORY: 6 month follow-up COMPARISON: 09/25/2018, 10/03/2018. This study was interpreted with the benefit of Computerized Aided Detection (CAD). Breast Density: HETERO The breast parenchyma is heterogenously dense, which could reduce sensitivity of mammography. Breast parenchyma level C. FINDINGS: No new or enlarging breast densities are seen. Previous noted microcalcifications are better seen on the current MLO view due to technical factors. They are smooth and rounded suggesting a benign etiology. Skin calcifications are also noted. These calcifications were only intermittently visualized on previous exams due to their posterior positions and patient motion. IMPRESSION: Stable right mammograms without evidence of malignancy. Follow-up bilateral mammography in 6 months and then at yearly intervals is suggested. BI-RADS CATEGORY: 3 PROBABLY BENIGN FINDING(S)-SHORT INTERVAL FOLLOW-UP SUGGESTED RECOMMENDED FOLLOW-UP: 12M 12 MONTH FOLLOW-UP PQRS compliance statement: Patient information was entered into a reminder system with a target due date for the next mammogram. Mammography is a sensitive method for finding small breast cancers, but it does not detect them all and is not a substitute for careful clinical examination. A negative mammogram does not negate a clinically suspicious finding and should not result in delay in biopsying a clinically suspicious abnormality. "Our facility is accredited by the [employer] Mammography Program."
== END | disposition home or self-care (01) ==
LOC: EDBD → MAMMO 10:01
PROVIDERS: ATTEND Family Medicine
DX: Z09 Encounter for follow-up examination after completed treatment for conditions other than malignant neoplasm (principal); R92.1 Mammographic calcification found on diagnostic imaging of breast
CPT/HCPCS: 77065

== ENCOUNTER → 2019-10-21 | Outpatient (CLI) | payer OTHER ==
--- NOTE | 2019-10-21 09:46 | RAD ---
DATE: October 21, 2019. EXAM: DIGITAL DIAGNOSTIC BILATERAL HISTORY: Follow-up of calcifications on the right side. COMPARISON: April 17, 2019. 2018. This study was interpreted with the benefit of Computerized Aided Detection (CAD). FINDINGS: Breast Density: HETERO The breast parenchyma is heterogenously dense, which could reduce sensitivity of mammography. Breast parenchyma level C.. There are no dominant suspicious masses, new suspicious pleomorphic microcalcifications or evidence of architectural distortion. The previously seen calcifications of the right breast are stable. IMPRESSION: Stable benign-appearing calcifications of the right breast. No mammographic indicators for malignancy. BI-RADS CATEGORY: 2 BENIGN FINDING RECOMMENDED FOLLOW-UP: 12M 12 MONTH FOLLOW-UP PQRS compliance statement: Patient information was entered into a reminder system with a target due date October 22, 2020 for the next mammogram. Mammography is a sensitive method for finding small breast cancers, but it does not detect them all and is not a substitute for careful clinical examination. A negative mammogram does not negate a clinically suspicious finding and should not result in delay in biopsying a clinically suspicious abnormality. "Our facility is accredited by the [employer] Mammography Program." The patient's breast density may affect the ability of mammography to detect breast cancer. There are 4 categories of breast density, A, B, C and D. Breast density A means that most of the breast tissue is replaced with adipose tissue and therefore is not dense. Breast density B means that the breast tissue is mildly dense and scattered. Breast density C means that the breast tissue is heterogeneously dense. Breast density D means that the breast tissue is very dense. Breast densities especially C and D may decrease the sensitivity of mammography to detect breast cancer. Therefore, the patient may benefit from 3-D breast mammography (3D breast tomography) as a part of their screening mammogram. Insurance may or may not pay for this additional imaging. The patient's breast density based on today's mammogram is category C.
== END | disposition home or self-care (01) ==
LOC: MAMMO 14:10
PROVIDERS: ATTEND Family Medicine
DX: R92.8 Other abnormal and inconclusive findings on diagnostic imaging of breast (principal)
CPT/HCPCS: 77066

== ENCOUNTER → 2020-06-02 | Outpatient (CLI) | payer OTHER ==
--- NOTE | 2020-06-02 18:08 | RAD ---
BILATERAL SCREENING MAMMOGRAM History: Routine screening. Comparison: 10/21/2019 09/25/2018 09/15/2017 09/14/2016. Technique: Routine bilateral digital mammogram views were obtained. Exam is somewhat limited due to the patient's physical condition. Findings: Breast Tissue Density B : There are scattered areas of fibroglandular density. There are no dominant masses, suspicious microcalcifications, or architectural distortion. IMPRESSION: No mammographic evidence of malignancy. Recommend routine screening. BI-RADS category 1: Negative. The images were reviewed with computer aided detection. Patient information is entered into the reminder system with a target due date for the next screening mammogram. Mammography is the most sensitive method for finding small breast cancers, but it does not detect them all and is not a substitute for careful clinical examination. A negative mammogram does not negate a clinically suspicious finding and should not result in delay in biopsying a clinically suspicious abnormality. "Our facility is accredited by the [employer] Mammography Program." Electronically signed by: Jaime Mullins MD (06/02/2020 6:05 PM) [id number]
== END | disposition home or self-care (01) ==
LOC: MAMMO 14:17
PROVIDERS: ATTEND Family Medicine
DX: Z12.31 Encounter for screening mammogram for malignant neoplasm of breast (principal)
CPT/HCPCS: 77067